=== PATIENT | female | born 1990 | race Caucasian/White ===

== ENCOUNTER 2017-09-24 00:10 | Observation (INO) | payer OTHER ==
[~2017-09-24] VITALS: Ht 160 cm; Wt 90.0 kg
[~2017-09-24 00:10] MED LIST: ZITHROMAX250 MG PO
== END 2017-09-24 09:45 | disposition home or self-care (01) ==
LOC: FBCO 00:10 → FBC 00:11
PROVIDERS: ADMIT General Practice
DX: O47.03 False labor before 37 completed weeks of gestation, third trimester (principal); Z3A.35 35 weeks gestation of pregnancy
CPT/HCPCS: 59025; 99213; G0378; J3105

== ENCOUNTER 2017-10-16 12:18 | Inpatient (IN) | payer OTHER ==
[~2017-10-16] VITALS: Ht 160 cm; Wt 90.0 kg
--- NOTE | ~2017-10-16 | OR ---
[facility] [address] [place], [place] [address] Draft DATE OF OPERATION: 10/22/2017 SURGEON: Mati Kramer DO PREOPERATIVE DIAGNOSES: 1. Term at 39 weeks and 3 days gestation. 2. History of operative vaginal delivery with shoulder dystocia. 3. Rubella nonimmune. POSTOPERATIVE DIAGNOSES: 1. Term at 39 weeks and 3 days gestation. 2. History of operative vaginal delivery with shoulder dystocia. 3. Rubella nonimmune. PROCEDURE PERFORMED: Primary low transverse section. BRACER: Mac Preciado MD ANESTHESIA: Spinal. ESTIMATED BLOOD LOSS: 500 mL. COMPLICATIONS: None. FINDINGS: Viable male , 8 pounds 4 ounces, born in cephalic position with nuchal cord tight x2. Apgars 4, 9 and 10 at one, five and 10 minutes respectively. Normal uterus, tubes, and ovaries. ESTIMATED BLOOD LOSS: 500 mL. INDICATIONS: Ms. Steward is a pleasant 27-year-old, G3, P 2-0-0-2 white female who presents for scheduled delivery. She has a history of an operative delivery that resulted PATIENT NAME: TORIN STEWARD OPERATIVE REPORT DATE OF : [birth year] REPORT #: [id number] PHYSICIAN: MATI KRAMER DO PCP: LOBITO RICHARD REPORT IS CONFIDENTIAL AND NOT TO BE RELEASED WITHOUT AUTHORIZATION [facility] [address] [place], [place] [address] Draft in a shoulder dystocia in a baby who weighed 8 pounds 14 ounces. Her next had a prolonged 2nd stage of labor with over 3 hours of pushing on 8 pounds 0 ounce baby. Current baby's estimated weight is somewhat larger and we discussed the risks and benefits of trial of vaginal delivery versus primary delivery. The patient strongly believes this is her last baby and strongly desires primary low-transverse section. Risks, benefits, and alternatives were discussed in detail. The patient understands and wishes to proceed with the procedure. TECHNIQUE: The patient was taken to the operating room where a time-out was performed to confirm correct patient, correct procedure. Spinal anesthesia was adequately established. The patient was then prepped and draped in the supine position with a bump under the right hip. A Leslie catheter was inserted. Ancef 2 g preoperatively were given and no heparin was indicated. After ensuring the spinal anesthetic was adequate, a Pfannenstiel skin incision was made and carried down to and through the fascia in the midline. The fascial incision was extended bilaterally using sharp dissection. The fascial edges were grasped with Vicenta's, elevated and the underlying rectus muscle dissected off bluntly and sharply. The rectus muscles were then divided bluntly and the peritoneum grasped with hemostats, elevated and entered sharply. The peritoneal incision was extended cephalad and caudad using sharp and blunt dissection. The lower uterine segment was identified and no intraabdominal adhesions were noted. An Christian self retractor was then placed and hysterotomy was performed using a surgical scalpel. Hysterotomy was then extended bilaterally using blunt dissection. The surgeon's hand was placed into the hysterotomy. The head elevated and delivered without difficulty with the assistance of fundal pressure. Nuchal cord x2 tight was noted and this was reduced. The remainder of the then delivered with the assistance of fundal pressure without difficulty. The cord was then doubly clamped and cut and the handed to the awaiting pediatric team for further care. Cord blood was obtained for routine analysis and the placenta was manually expressed without difficulty. Pitocin was started to enhance uterine involution and to prevent additional bleeding. Bleeding was scant. The uterine cavity was cleared of all remaining products of conception of membranes and the hysterotomy was then repaired using 0 Vicryl in a running locked suture. A 2nd suture of 0 Vicryl was then placed in the imbricating fashion vertically. Good hemostasis was noted. The pelvis was irrigated and a small amount of oozing was noted in the midline at the hysterotomy. This was made hemostatic with a jjfghi-ak-zysyd stitch of 0 Vicryl. No additional bleeding was noted. The Christian retractor was removed and ACell sheet was applied to the lower uterine segment. The peritoneum was then reapproximated using 2-0 Vicryl in a running nonlocked manner. The rectus muscle was then reapproximated using 0 Vicryl in two loose arpqma-ka-fojyq sutures. The rectus was then irrigated and made hemostatic with Bovie electrocautery. ACell powder was applied to the rectus sheath and then the fascia was reapproximated using 0 Vicryl in a running nonlocked manner. Subcutaneous space was then PATIENT NAME: TORIN STEWARD OPERATIVE REPORT DATE OF : [birth year] REPORT #: [id number] PHYSICIAN: MATI KRAMER DO PCP: LOBITO RICHARD REPORT IS CONFIDENTIAL AND NOT TO BE RELEASED WITHOUT AUTHORIZATION [address] [address] Draft reapproximated utilizing 2-0 Vicryl in a running nonlocked manner. Skin was then reapproximated using Quill suture in a subcuticular stitch with good hemostasis and cosmesis. The uterus was Crede'd for minimal blood loss and the patient was then taken to PACU in good and stable condition. The had initial of 4, but quickly responded to a positive pressure ventilation and is in good and stable condition as well. Sponge, needle, instrument count was correct x2 at the end of the procedure. Dr. Preciado was present, participated in all portions of the procedure. Mati Kramer DO JJULIANE/HARESH /[id number] Copies: ~ PATIENT NAME: TORIN STEWARD OPERATIVE REPORT DATE OF : [birth year] REPORT #: [id number] PHYSICIAN: MATI KRAMER DO PCP: LOBITO RICHARD REPORT IS CONFIDENTIAL AND NOT TO BE RELEASED WITHOUT AUTHORIZATION
--- NOTE | 2017-10-22 10:32 | NUR ---
10/22/17 1031 Florecita Bailey 1020 PATIENT ARRIVES BACK TO [facility] 105 VIA BED. PATIENT AWAKE, ALERT AND ORIENTED X3. RESP EVEN AND UNLABORED. DENIES PAIN OR NAUSEA. 1030 PATIENT BREAST FEEDING TO LEFT BREAST. PATIENT SITTING UP IN BED. DENIES PAIN OR NAUSEA.
== END 2017-10-24 14:00 | disposition home or self-care (01) | DRG 766 ==
LOC: FBC 10-22 06:55 → MS 10-22 16:30 → FBC 10-22 16:31
PROVIDERS: ADMIT Obstetrics & Gynecology
PROC: 10D00Z1 Extraction of Products of Conception, Low, Open Approach (ICD-10-PCS; principal; 2017-10-22 08:15)
PROC: 3E0234Z Introduction of Serum, Toxoid and Vaccine into Muscle, Percutaneous Approach (ICD-10-PCS; 2017-10-24)
DX: O36.63X0 Maternal care for excessive fetal growth, third trimester, not applicable or unspecified (principal); O69.1XX0 Labor and delivery complicated by cord around neck, with compression, not applicable or unspecified; O99.62 Diseases of the digestive system complicating childbirth; K21.9 Gastro-esophageal reflux disease without esophagitis; N89.8 Other specified noninflammatory disorders of vagina; O34.83 Maternal care for other abnormalities of pelvic organs, third trimester; Z23 Encounter for immunization; Z3A.39 39 weeks gestation of pregnancy; Z37.0 Single live birth
CPT/HCPCS: 01961; 36415; 85027; 90707; C1763; J0690; J1885; J2274; J2370; J2405; J2550; J2590; J3010; J7120

== ENCOUNTER 2020-09-25 05:46 | Day surgery (SDC) | payer OTHER ==
[~2020-09-25] VITALS: Ht 160 cm; Wt 81.8 kg
--- NOTE | 2020-09-25 09:20 | NUR ---
09/25/20 0920 Jannette Leon 0962-PATIENT ARRIVED TO PACU ON 6L MASK RR EVEN. PATIENT REACTIVE TO VOICE TURNING HEAD AND SLIGHTLY OPENING EYES. PATIENT VERY DROWSY. 3 LAP SITES TO ABDOMEN CDI WITH BANDAIDS. BROWN CATHETER DRAINING YELLOW URINE. IVF INFUSING.
--- NOTE | 2020-09-25 10:13 | NUR ---
LE 1000: PT IS BACK TO DS FROM PACU. SHE IS NAUSEATED WITH SOME EMESIS. IS AT THE BEDSIDE. SHE IS GIVEN PHENEGRAN AND PEPCID. CALL LIGHT WITHIN REACH. WATER ON BEDSIDE TABLE WHEN SHE IS NO LONGER NAUSEATED. PT'S QUESTIONS ARE ASKED AND ANSWERED. CAM HUGGER IS TURNED ON FOR PT. NO ADDITIONAL NEEDS.
--- NOTE | 2020-09-25 10:22 | NUR ---
PT WOULD LIKE TO HAVE BROWN REMOVED, SHE HAS BEEN OUT OF SURGERY FOR OVER AN HOUR. 9MLS ARE REMOVED FROM THE BALLOON. THE BROWN IS REMOVED WITH 400MLS OF PALE YELLOW URINE IN THE BAG.
--- NOTE | 2020-09-25 10:23 | NUR ---
DR. BOYCE IS CALL REGARDING MEDS TO GO HOME WITH, HE DID NOT WRITE ANY FOR ANY RX'S.
--- NOTE | 2020-09-25 10:28 | NUR ---
PT TAKEN TO OR, CONNECTED WITH REMAINING IN RM. ALL QUESTIONS ASKED ANSWERED. GAVE ENCOURAGEMENT AND BLESSING. WILL FOLLOW
--- NOTE | 2020-09-25 11:10 | NUR ---
PT REPORTS THAT BOTH HER PAIN AND NAUSEA ARE BETTER. STILL AT THE BEDSIDE. CALL LIGHT WITHIN REACH. SHE HASN'T TRIED ANY WATER YET. NO ADDITIONAL NEEDS AT THIS TIME.
--- NOTE | 2020-09-25 11:20 | NUR ---
TESS 1115: PT IS UP OOB TO THE BATHROOM. SHE AMBULATES WITH THE ASSISTANCE OF HER TO AND FROM THE BATHROOM. SHE REPORTS BEING DIZZY, SHE IS EDUCATED THAT THE PHENEGRAN CAN CAUSE THAT. SHE ALSO STATES THAT THE DIZZINESS IS MAKING HER NAUSEATED. SHE IS ENCOURAGED TO TRY SIPS OF WATER AND SALTINES.
--- NOTE | 2020-09-25 12:04 | NUR ---
PT REPORTS THAT SHE IS STILL FEELING OK, JUST DROWSY FROM THE PHENEGRAN. CALL LIGHT IS WITHIN REACH. SHE HAS YET TO EAT OR DRINK ANYTHING, SHE IS ENCOURAGED TO TRY A SIP OF WATER, SHE DOES SO WITHOUT ISSUE. DR. BOYCE IS AT THE BEDSIDE TO TALK WITH PATIENT.
[2020-09-25] MEDS ORDERED: HYDROCODON-ACE1 EA10 PO (12:08)
[2020-09-25] MEDS ORDERED: IBU800 MG PO (12:09)
--- NOTE | 2020-09-25 14:04 | NUR ---
PT REPORTS FEELING A LOT BETTER, NO NAUSEA. SHE IS REQUESTING A PAIN PILL. CALL LIGHT WITHIN REACH. NO ADDITIONAL NEEDS.
--- NOTE | 2020-09-25 15:04 | NUR ---
LE 1450: PT AND ARE GIVEN VERBAL DC INSTRUCTIONS, THEY BOTH VERBALIZE UNDERSTANDING. THEY HAVE NO QUESTIONS AT THIS TIME. PT IS TAKEN TO PERSONAL VEHICLE VIA WC, SHE IS ABLE TO TRANSFER HERSELF FROM WC TO PERSONAL VEHICLE.
--- NOTE | 2020-09-26 14:41 | PATH ---
[facility] [address], [place] [address] Signed SPECIMEN(S): A UTERUS, CERVIX, AND TUBES SPECIMEN SOURCE: A. UTERUS, CERVIX, AND TUBES CLINICAL HISTORY: Abnormal uterine bleeding. TLH, BS, Cysto. FINAL PATHOLOGIC DIAGNOSIS: Uterus, cervix, and bilateral fallopian tubes, hysterectomy and bilateral salpingectomy: - Cervix: No histopathologic abnormality. - Endometrium: Proliferative endometrium, chronic endometritis. - Myometrium: No histopathologic abnormality. - Serosa: No histopathologic abnormality. - Fallopian tubes: Mild chronic salpingitis, focal paratubal cysts. - No evidence of malignancy. NAL:cml:C2NR MICROSCOPIC EXAMINATION: Histologic sections of all submitted blocks are examined by light microscopy. These findings, together with the gross examination, support the pathologic diagnosis. GROSS DESCRIPTION: The specimen, labeled "KA," and designated on the requisition "bilateral fallopian tubes, cervix and uterus," is received in formalin and consists of a uterus (171 g, 7.6 cm left to right, 7.3 cm superior to inferior, 5.1 cm anterior to posterior), attached cervix (3.3 cm in length x 3.4 cm in diameter) with pink to brown-heredia cervical mucosa and patent slit-shaped os (1.4 x 0.4 cm), and two detached and undesignated fimbriated fallopian tube segments (4.9 cm in length and ranging in diameter from 0.7-1.1 cm, and 6.1 cm in length and ranging in diameter from 0.5-1.0 cm). One fallopian tube segment is arbitrarily inked blue. Both fallopian tube segments are with attached paratubal cysts (0.2 and 0.7 cm in greatest dimension) and sectioned reveal a grossly unremarkable cut surface. The fimbriae are entirely submitted. The uterine serosa is pink-heredia and smooth. The anterior aspect of the uterus and cervix are inked blue. The specimen is opened, revealing a pink-heredia to PATIENT NAME: TORIN ISLAS PATHOLOGY DATE OF : [birth year] REPORT #: [id number] PHYSICIAN: MERA PATHOLOGY PCP: NO PRIMARY CARE PHYSICIAN REPORT IS CONFIDENTIAL AND NOT TO BE RELEASED WITHOUT AUTHORIZATION [facility] [address], [place] [address] Signed hemorrhagic endocervix (endocervical canal: 3.2 cm in length x 1.4 cm in diameter), and endometrial cavity (5.5 cm superior to inferior x 4.3 cm cornu to cornu) with red-brown endometrial lining that measures up to 0.3 cm in thickness. The myometrium is pink-heredia and trabeculated with no masses. Lumber Sales Supervisor sections are submitted as follows: (A1-A2) fallopian tubes (A3) cervix (A4) endomyometrium AC (under the direct supervision of a pathologist) The Gross Description was prepared using a voice recognition system. The report was reviewed for accuracy; however, sound-alike word errors, addition and/or deletions may occur. If there is any question about this report, please contact Client Services. PERFORMING LABORATORY: The technical component was performed by [facility], [address] [place] [id number] (Customer Service Leader: Maryjo Hernandez MD; CLIA# [id number]). [facility] [address] [address] (IA# [id number]). Diagnostician: Polly Garcia MD Pathologist Electronically Signed 09/26/2020 Copies: ~ PATIENT NAME: TORIN ISLAS [facility]LEY PATHOLOGY DATE OF : 88 REPORT #: [id number] PHYSICIAN: MERA PATHOLOGY PCP: NO PRIMARY CARE PHYSICIAN REPORT IS CONFIDENTIAL AND NOT TO BE RELEASED WITHOUT AUTHORIZATION
--- NOTE | 2020-10-19 22:49 | OR ---
[facility] [address], [place] [address] Signed DATE OF OPERATION: 09/25/2020 SURGEON: Mati Kramer DO PREOPERATIVE DIAGNOSES: 1. Abnormal uterine bleeding. 2. Possible scar endometriosis on imaging. POSTOPERATIVE DIAGNOSES: 1. Abnormal uterine bleeding. 2. Possible scar endometriosis on imaging. PROCEDURES PERFORMED: 1. Total laparoscopic hysterectomy. 2. Bilateral salpingectomy. 3. Cystoscopy. FLORAL CLERK: Gretel Madden DO ANESTHESIA: General. ESTIMATED BLOOD LOSS: 25 mL. SPECIMEN: Uterus, bilateral fallopian tubes, and cervix. DRAINS: Lelsie cath. FINDINGS: Normal external genitalia with normal clitoris, urethral meatus, bilateral Farm[place]'s, and Bartholin's. On laparoscopy, normal liver, gallbladder, and omentum. No abdominal or pelvic adhesions. Normal uterus, bilateral fallopian tubes and ovaries, and hemostasis at the end of the procedure. On cystoscopy, normal bladder with bilateral ureteral jets. COMPLICATIONS: Electronically Signed By: MATI KRAMER DO 10/19/20 2249 PATIENT NAME: TORIN STEWARD OPERATIVE REPORT DATE OF : [birth year] REPORT #: [id number] PHYSICIAN: MATI KRAMER DO PCP: NO PRIMARY CARE PHYSICIAN REPORT IS CONFIDENTIAL AND NOT TO BE RELEASED WITHOUT AUTHORIZATION [facility] [address] [place] [id number] Signed None. INDICATIONS: Ms. Steward is a very pleasant 30-year-old white female, who presents struggling with worsening abnormal uterine bleeding and dysmenorrhea following in 2018. Menses were regular with heavy bleeding. She failed conservative management. An ultrasound demonstrated possible , endometriosis. The patient desired definitive treatment with total loss of laparoscopic hysterectomy. Risks, benefits, and alternatives were discussed in detail with the patient. The patient understands and wished to proceed with the procedure. TECHNIQUE: The patient was taken to the operating room. A time-out was performed to confirm correct patient, correct procedure. General anesthesia was adequately established. The patient was prepped and draped in dorsal lithotomy position with feet in Yellofin stirrups. ICPs were on and running. She was received 2 g of Ancef preoperatively, no heparin was indicated. A Leslie catheter was inserted. A weighted speculum was placed in the vagina. The anterior lip of the cervix was grasped with single-tooth tenaculum. The cervix was gently dilated using Hegar dilators and a VCare uterine manipulator was placed without difficulty. Surgeon's gloves were changed and attention was turned to the abdomen. The base of the umbilicus was infiltrated with 0.25% Marcaine with epinephrine and a 5 mm stab incision was made with an #11 blade. A 5 mm trocar was then placed under direct visualization without complication. Pneumoperitoneum was established and survey of the abdomen and pelvis was performed. A 5 mm assist port was placed in left lower quadrant under direct visualization and an 8 mm expanding port was placed in the right lower quadrant under direct visualization without complication. Attention was then turned to hysterectomy. The left fallopian tube was grasped, elevated, and dissected along the mesosalpinx using ligature device. It was then sent to pathology for further evaluation. The left uteroovarian ligament was fulgurated and divided with excellent hemostasis. The left round ligament was fulgurated and divided. The leaves of the broad ligament were divided. The anterior leaf of the broad ligament was dissected down across the anterior portion of the cervical cuff and the bladder was bluntly dissected well below the vaginal cup. The posterior leaf of the broad ligament was divided down to the angle of the uterosacral ligament across the posterior edge of the vaginal cuff. The uterine vasculature was identified, fulgurated and divided with excellent hemostasis. Attention was turned to the right side where the process was repeated with dissection of the fallopian tube along the mesosalpinx, fulguration, division of the right utero-ovarian ligament and the right round ligament. Leaves of the broad ligament on the right were divided and the peritoneum was completely dissected below the vaginal cuff anterior and posteriorly. The uterine vasculature was identified and fulgurated and divided the edge of the vaginal cuff with the LigaSure device. An excellent hemostasis was appreciated. Colpotomy was then performed using a Sonicision Electronically Signed By: MATI KRAMER DO 10/19/20 2249 PATIENT NAME: TORIN STEWARD OPERATIVE REPORT DATE OF : 89 REPORT #: [id number] PHYSICIAN: MATI KRAMER DO PCP: NO PRIMARY CARE PHYSICIAN REPORT IS CONFIDENTIAL AND NOT TO BE RELEASED WITHOUT AUTHORIZATION [facility] [address], [place] [address] Signed device without difficulty with excellent hemostasis. The uterus and cervix were delivered through the vagina and sent to pathology for further evaluation. Pneumoperitoneum was reestablished by placing a wet lap sponge into a glove and placing this in the vagina. The pelvis was irrigated and found to be hemostatic. Colpotomy was then repaired using V-Loc suture with an Endostitch device with careful attention to incorporate the uterosacral ligaments bilaterally and the vaginal epithelium with each bite. Excellent hemostasis and vaginal support were appreciated. The pelvis was irrigated and a small amount of oozing was noted from the left corner at the cervical stroma. This was carefully fulgurated using judicious monopolar cautery with a spatula tip. Tisseel was then applied to the vaginal cuff and pedicles with excellent hemostasis appreciated. The pelvis was irrigated and trocars were removed. Trocar sites repaired using 4-0 Monocryl with excellent hemostasis and cosmesis. Attention was then turned to cystoscopy. The Leslie catheter was removed and a 70-degree cystoscope was placed in the urethral meatus and advanced under direct visualization into the bladder. Normal bladder dome and bladder were appreciated. Bilateral ureteral jets were appreciated. The bladder was drained. Leslie catheter was reinserted and the patient was taken to PACU in good and stable condition. Sponge, needle, and instrument count were correct x2 at the end the procedure. Dr. Madden was present and participated in all portions of the procedure. Mati Kramer DO JDW/MODL /[id number] Copies: ~ Electronically Signed By: MATI KRAMER DO 10/19/20 2249 PATIENT NAME: TORIN STEWARD OPERATIVE REPORT DATE OF : [birth year] REPORT #: [id number] PHYSICIAN: MATI KRAMER DO PCP: NO PRIMARY CARE PHYSICIAN REPORT IS CONFIDENTIAL AND NOT TO BE RELEASED WITHOUT AUTHORIZATION
== END 2020-09-25 14:55 | disposition home or self-care (01) ==
LOC: DS 05:46 → OPS 05:46
PROVIDERS: ATTEND Obstetrics & Gynecology
PROC: 0UT94ZZ Resection of Uterus, Percutaneous Endoscopic Approach (ICD-10-PCS; principal; 2020-09-25 06:45)
PROC: 0UT74ZZ Resection of Bilateral Fallopian Tubes, Percutaneous Endoscopic Approach (ICD-10-PCS; 2020-09-25 06:45)
DX: N80.0 Endometriosis of uterus (principal); N80.6 Endometriosis in cutaneous scar; N71.1 Chronic inflammatory disease of uterus; N70.11 Chronic salpingitis; N83.8 Other noninflammatory disorders of ovary, fallopian tube and broad ligament; E78.00 Pure hypercholesterolemia, unspecified; Z88.5 Allergy status to narcotic agent
CPT/HCPCS: 00840; J0131; J0690; J1100; J1885; J2250; J2405; J2550; J2704; J2765; J3010; J7121